=== PATIENT | female | born 1990 | race Caucasian/White ===

== ENCOUNTER 2018-01-27 15:36 | Emergency (ER) | payer BC ==
--- NOTE | 2018-01-27 18:30 | UC ---
Complaint Female HPI - HPI Summary HPI Summary: 27 y/o female presents to the urgent care c/o frequency and pressure on urination for the past 2 weeks. Pt concerned w/ since she has been burping, decrease appetite and nausea in the morning. She has similar symptoms whe she was w/ her other children. She took a test 4 days ago and it was negative. She request another. LMP:12/16/2017 and she was on Mirena and her [employer] change it to Low estrogen OCP. Pt denies fever, pelvic pain , lower back pain, vaginal d/c, Hx of STD's. Pt has not taken anything to alleviate symptoms. - History Of Current Complaint Chief Complaint: UCGU Stated Complaint: URINARY Time Seen by Provider: 01/27/18 18:27 Hx Obtained From: Patient Hx Last Menstrual Period: Dec 16-2017 Onset/Duration: Gradual Onset, Lasting Weeks - 2 weeks, Still Present, Worse Since - today Timing: Intermittent, Lasting Seconds Severity Initially: Mild Severity Currently: Mild Pain Intensity: 4 Pain Scale Used: 0-10 Numeric Character: Not Applicable Aggravating Factor(s): Urination Alleviating Factor(s): Nothing Associated Signs And Symptoms: Positive: Negative. Negative: Fever, Back Pain, Vaginal Bleeding/Discharge, Vaginal Discharge - Risk Factors Ectopic Risk Factor: Negative Ovarian Torsion Risk Factor: Negative - Allergies/Home Medications Allergies/Adverse Reactions: Allergies Allergy/AdvReac Type Severity Reaction Status Date / Time [email or web address] Allergy Anaphylatic Verified 01/27/18 18:17 Shock Sulfa (Sulfonamide Allergy Hives Verified 01/27/18 18:17 Antibiotics) Home Medications: Home Medications Norethindrone AC-Eth Estradiol [Loestrin 21 1-20 Tablet] 1 tab DAILY 01/27/18 [ History Confirmed 01/27/18] PMH/Surg Hx/FS Hx/Imm Hx Previously Healthy: Yes - Pt denies PMHX - Surgical History Surgical History: Yes Surgery Procedure, Year, and Place: Ear Tubes. Laparoscopy x2 for endometriosis - Family History Family History: Kidney cancer, lung cancer, breast cancer, prostate cancer - Social History Alcohol Use: None Substance Use Type: None Smoking Status (MU): Never Smoked Tobacco Review of Systems Constitutional: Negative Skin: Negative Eyes: Negative ENT: Negative Respiratory: Negative Cardiovascular: Negative Gastrointestinal: Negative Genitourinary: Frequency, Urgency Motor: Negative Neurovascular: Negative Musculoskeletal: Negative Neurological: Negative Psychological: Negative Is Patient Immunocompromised?: No All Other Systems Reviewed And Are Negative: Yes Physical Exam - Summary Physical Exam Summary: VITAL SIGNS: Reviewed. GENERAL: Patient is a well developed and nourished female who is sitting comfortable in the examining table. Patient is not in any acute respiratory distress. HEAD AND FACE: No signs of trauma. No ecchymosis, hematomas or skull depressions. No sinus tenderness. EYES: PERRLA, EOMI x 2, No injected conjunctiva, clear watery eyes, no nystagmus. No photophobia. EARS: Hearing grossly intact. Ear canals and tympanic membranes are within normal limits. MOUTH: pharynx with no erythema, no exudates,no palatal petechiae. no B/L tonsillar enlargement Uvula in midline. NECK: Supple, trachea is midline, no lymphadenopathy, no JVD, no carotid bruit, no c-spine tenderness, neck with full ROM. CHEST: Symmetric, no tenderness at palpation LUNGS: Clear to auscultation bilaterally. No wheezing or crackles. CVS: Regular rate and rhythm, S1 and S2 present, no murmurs or gallops appreciated. ABDOMEN: Soft, non-tender. No signs of distention. No rebound no guarding, and no masses palpated. Bowel sounds are normal. BACK:no scoliosis or lesions, non tender to palpation, No B/L CVA tenderness EXTREMITIES: FROM in all major joints, no edema, no cyanosis or clubbing. NEURO: Alert and oriented x 3. No acute neurological deficits. Speech is normal and follows commands. SKIN: Dry and warm Triage Information Reviewed: Yes Vital Signs: Initial Vital Signs Temp 98 F 01/27/18 18:18 Pulse 87 01/27/18 18:18 Resp 16 01/27/18 18:18 BP 111/45 01/27/18 18:18 Pulse Ox 100 01/27/18 18:18 Complaint Female Dx - Course Course Of Treatment: 27 y/o female presents to the urgent care c/o frequency and pressure on urination for the past 2 weeks. Pt concerned w/ since she has been burping, decrease appetite and nausea in the morning. She has similar symptoms whe she was w/ her other children. She took a test 4 days ago and it was negative. She request another. LMP:2017 and she was on Mirena and her [employer] change it to Low estrogen OCP. Pt denies fever, pelvic pain, lower back pain, vaginal d/c, Hx of STD's. Pt has not taken anything to alleviate symptoms.Hx obtained. PE: WNL. UA: negative, test: negative. Pt w/ Dysuria.Pt Rx Pyridium 100mg PO TID x 2 days. Advised to increase fluid intake.Explained that her symptoms may be due to change in her OCPs. Pt advised If symptoms do not improve f/u with PCP Luis. Pt understood and agreed. Left the clinic ambulating. - Differential Dx/Diagnosis Differential Diagnosis/HQI/PQRI: Pelvic Inflammatory Disease, , Renal Colic, Ureteral Stone, Urinary Tract Infection Provider Diagnoses: 1- Dysuria. 2-Screening for Discharge - Sign-Out/Discharge Documenting (check all that apply): Discharge - Discharge Plan Condition: Stable Disposition: HOME Prescriptions: Phenazopyridine TAB* [Pyridium 100 mg TAB*] 100 mg PO TID #6 tab Patient Education Materials: Dysuria (ED) Referrals: Gómez Davis DO [Primary Care Provider] - 3 Days Additional Instructions: 1- Please take Pyridium 100 mg PO TID x 2 days to alleviate urinary symptoms. Increase increase fluid intake. drink cranberry juice. 2-If symptoms do not improve please f/u with your PCP or [employer] for further evaluation and treatment - Billing Disposition and Condition Condition: STABLE Disposition: HOME
== END 2018-01-27 18:57 | disposition home or self-care (01) ==
LOC: UCCORT 15:36
DX: R30.0 Dysuria (principal); Z32.02 Encounter for pregnancy test, result negative; Z88.2 Allergy status to sulfonamides
CPT/HCPCS: 81003; 84702; 99202; G0463

== ENCOUNTER 2018-04-12 12:22 | Emergency (ER) | payer BC ==
--- NOTE | 2018-04-12 13:01 | UC ---
Complaint Female HPI - HPI Summary HPI Summary: urinary urgency and frequency x 5 days bilateral flank pain , no fever, no chills no nausea , no vomiting - History Of Current Complaint Chief Complaint: UCGU Stated Complaint: URINARY W/BACK PAIN Time Seen by Provider: 04/12/18 12:46 Hx Obtained From: Patient Hx Last Menstrual Period: unknown, on Oral BCP ?: No Onset/Duration: Gradual Onset, Lasting Days - 5, Still Present Timing: Constant Severity Initially: Severe Severity Currently: Severe Pain Intensity: 3 Character: Sharp Aggravating Factor(s): Urination Alleviating Factor(s): Nothing Associated Signs And Symptoms: Positive: Back Pain. Negative: Fever, Vaginal Bleeding/Discharge, Vaginal Discharge, Nausea, Vomiting(# Of Episodes =), Genital Swelling, Genital Blisters, Retained Foregin Body (Specify) - Allergies/Home Medications Allergies/Adverse Reactions: Allergies Allergy/AdvReac Type Severity Reaction Status Date / Time [email or web address] Allergy Anaphylatic Verified 04/12/18 12:37 Shock Sulfa (Sulfonamide Allergy Hives Verified 04/12/18 12:37 Antibiotics) PMH/Surg Hx/FS Hx/Imm Hx Previously Healthy: Yes - Surgical History Surgical History: Yes Surgery Procedure, Year, and Place: Ear Tubes. adnoids. Laparoscopy x2 for endometriosis - Family History Known Family History: Negative: Diabetes Family History: Kidney cancer, lung cancer, breast cancer, prostate cancer - Social History Alcohol Use: None Substance Use Type: None Smoking Status (MU): Never Smoked Tobacco Review of Systems Constitutional: Negative Skin: Negative Eyes: Negative ENT: Negative Respiratory: Negative Cardiovascular: Negative Gastrointestinal: Negative Is Patient Immunocompromised?: No All Other Systems Reviewed And Are Negative: Yes Physical Exam Triage Information Reviewed: Yes Appearance: Well-Appearing, Well-Nourished, Pain Distress Vital Signs: Initial Vital Signs Temp 98.9 F 04/12/18 12:34 Pulse 70 04/12/18 12:34 Resp 16 04/12/18 12:34 BP 119/63 04/12/18 12:34 Pulse Ox 100 04/12/18 12:34 Vital Signs Reviewed: Yes Eyes: Positive: Conjunctiva Clear ENT: Positive: Normal ENT inspection, Hearing grossly normal, Pharynx normal Neck: Positive: Supple, Nontender, No Lymphadenopathy Respiratory: Positive: Chest non-tender, Lungs clear, Normal breath sounds Cardiovascular: Positive: RRR, No Murmur, Pulses Normal Abdomen Description: Positive: Nontender, Soft. Negative: CVA Tenderness (R), CVA Tenderness (L), Distended, Guarding Bowel Sounds: Positive: Present Neurological Exam: Normal Skin Exam: Normal Complaint Female Dx - Differential Dx/Diagnosis Provider Diagnoses: flank pain Discharge - Sign-Out/Discharge Documenting (check all that apply): Discharge/Admit/Transfer - Discharge Plan Condition: Stable Disposition: HOME Patient Education Materials: Flank Pain (ED) Referrals: Gómez Davis DO [Primary Care Provider] - 5 Days Additional Instructions: normal UA , cont. with rest, increase fluid, take Tylenol as needed for pain ' follow up with your pcp in 5 days if not improving - Billing Disposition and Condition Condition: STABLE Disposition: Home
== END 2018-04-12 13:10 | disposition home or self-care (01) ==
LOC: UCCORT 12:22
DX: R10.9 Unspecified abdominal pain (principal); Z88.2 Allergy status to sulfonamides; Z91.018 Allergy to other foods
CPT/HCPCS: 81003; 99211; G0463

== ENCOUNTER 2019-07-08 09:56 | Emergency (ER) | payer BC, OTHER ==
[2019-07-08 10:58] VITALS: BP 110/61
--- NOTE | 2019-07-08 11:17 | UC ---
Throat Pain/Nasal Mynor HPI - HPI Summary HPI Summary: Pt presents with c/o nasal congestion, chills, body aches, possible fever, sinus pressure X "many days". Pt has baby at home is breast feeding and states she does not get "very good sleep at night". - History of Current Complaint Chief Complaint: UCGeneralIllness Stated Complaint: SINUS PRESSURE Time Seen by Provider: 07/08/19 10:56 Hx Obtained From: Patient Hx Last Menstrual Period: unknown, on Oral BCP ?: No Onset/Duration: Gradual Onset, Lasting Days, Still Present, Worse Since - onset Severity: Moderate Pain Intensity: 3 Associated Signs & Symptoms: Positive: Sinus Discomfort, Nasal Discharge, Fever - Epiglottits Risk Factors Epiglottis Risk Factors: Negative - Allergies/Home Medications Allergies/Adverse Reactions: Allergies Allergy/AdvReac Type Severity Reaction Status Date / Time [email or web address] Allergy Anaphylatic Verified 07/08/19 10:59 Shock Sulfa (Sulfonamide Allergy Hives Verified 07/08/19 10:59 Antibiotics) Home Medications: Home Medications Acetaminophen [Tylenol] 325 mg PO DAILY PRN 07/08/19 [History Confirmed 07/08/19 ] PMH/Surg Hx/FS Hx/Imm Hx Previously Healthy: Yes - Surgical History Surgical History: Yes Surgery Procedure, Year, and Place: Ear Tubes. adnoids. Laparoscopy x2 for endometriosis - Family History Known Family History: Negative: Diabetes Family History: Kidney cancer, lung cancer, breast cancer, prostate cancer - Social History Occupation: Works From/At Home Lives: With Family Alcohol Use: None Substance Use Type: None Smoking Status (MU): Never Smoked Tobacco Have You Smoked in the Last Year: No - Immunization History Vaccination Up to Date: Yes Review of Systems All Other Systems Reviewed And Are Negative: Yes Constitutional: Positive: Fever, Chills, Fatigue Skin: Positive: Negative Eyes: Positive: Negative ENT: Positive: Ear Ache, Sinus Congestion, Sinus Pain/Tenderness Respiratory: Positive: Negative Cardiovascular: Positive: Negative Gastrointestinal: Positive: Negative Genitourinary: Positive: Negative Motor: Positive: Negative Neurovascular: Positive: Negative Musculoskeletal: Positive: Myalgia Neurological: Positive: Negative Psychological: Positive: Negative Is Patient Immunocompromised?: No Physical Exam Triage Information Reviewed: Yes Appearance: Ill-Appearing Vital Signs: Initial Vital Signs Temp 98.4 F 07/08/19 10:53 Pulse 98 07/08/19 10:53 Resp 16 07/08/19 10:53 BP 110/61 07/08/19 10:53 Pulse Ox 100 07/08/19 10:53 Vital Signs Reviewed: Yes Eye Exam: Normal ENT: Positive: Nasal congestion, Sinus tenderness Dental Exam: Normal Neck exam: Normal Respiratory Exam: Normal Cardiovascular Exam: Normal Musculoskeletal Exam: Normal Neurological Exam: Normal Psychological Exam: Normal Skin Exam: Normal Throat Pain/Nasal Course/Dx - Differential Dx/Diagnosis Differential Diagnosis/HQI/PQRI: Influenza, Pharyngitis, Sinusitis, Tonsillitis , URI Provider Diagnosis: Sinusitis Discharge ED - Sign-Out/Discharge Documenting (check all that apply): Patient Departure All imaging exams completed and their final reports reviewed: No Studies - Discharge Plan Condition: Stable Disposition: HOME Prescriptions: Amoxicillin PO (*) [Amoxicillin 875 MG (*)] 875 mg PO Q12H #20 tab Cetirizine* [ZyrTEC 10 MG TAB*] 10 mg PO DAILY #7 tab Fluconazole 150 MG TAB* [Diflucan 150 MG TAB*] 150 mg PO UC ONCE #2 tablet Patient Education Materials: Sinusitis (ED) Referrals: Gómez Davis DO [Primary Care Provider] - If Needed Additional Instructions: Please follow up with your PCP as needed. - Billing Disposition and Condition Condition: STABLE Disposition: Home - Attestation Statements Provider Attestation: Per institutional requirements, I have reviewed the chart, however, I was not consulted specifically or made aware of this patient by the midlevel provider. I did not personally evaluate, interact with , or disposition this patient.
== END 2019-07-08 11:27 | disposition home or self-care (01) ==
LOC: UCCORT 09:56
DX: J32.9 Chronic sinusitis, unspecified (principal); Z88.1 Allergy status to other antibiotic agents
CPT/HCPCS: 99212; G0463

== ENCOUNTER 2019-09-23 14:51 | Emergency (ER) | payer OTHER ==
[2019-09-23 15:49] VITALS: BP 110/63
--- NOTE | 2019-09-23 16:07 | UC ---
Complaint Female HPI - HPI Summary HPI Summary: C/O recurrent BV with vaginal discharge and irritation. Just had it last month. - History Of Current Complaint Stated Complaint: URINARY COMPLAINT Hx Obtained From: Patient Hx Last Menstrual Period: 07/2019 ?: No Onset/Duration: Sudden Onset, Lasting Days - 2, Still Present Timing: Constant Severity Initially: Mild Severity Currently: Moderate Pain Intensity: 6 Character: Burning Aggravating Factor(s): Nothing Associated Signs And Symptoms: Positive: Vaginal Discharge Related Hx: Similar Episode/Dx as: - bacterial vaginosis - Allergies/Home Medications Allergies/Adverse Reactions: Allergies Allergy/AdvReac Type Severity Reaction Status Date / Time [email or web address] Allergy Anaphylatic Verified 09/23/19 15:50 Shock Sulfa (Sulfonamide Allergy Hives Verified 09/23/19 15:50 Antibiotics) Home Medications: Home Medications Norethindrone 0.35 mg PO DAILY 09/23/19 [History Confirmed 09/23/19] PMH/Surg Hx/FS Hx/Imm Hx Previously Healthy: Yes - Surgical History Surgical History: Yes Surgery Procedure, Year, and Place: Ear Tubes. adenoids/tonsils. Laparoscopy x2 for endometriosis - Family History Known Family History: Negative: Cardiac Disease, Hypertension, Diabetes Family History: Kidney cancer, lung cancer, breast cancer, prostate cancer - Social History Occupation: Works From/At Home Lives: With Family Alcohol Use: None Substance Use Type: None Smoking Status (MU): Never Smoked Tobacco Have You Smoked in the Last Year: No - Immunization History Vaccination Up to Date: Yes Review of Systems All Other Systems Reviewed And Are Negative: Yes ENT: Positive: Nasal Discharge Respiratory: Positive: Shortness Of Breath - wheezing, Cough Genitourinary: Positive: Vaginal/Penile Burning, Vaginal/Penile Discharge Physical Exam Triage Information Reviewed: Yes Appearance: No Pain Distress, Well-Nourished, Ill-Appearing Vital Signs: Initial Vital Signs Temp 98.5 F 09/23/19 15:40 Pulse 78 09/23/19 15:40 Resp 18 09/23/19 15:40 BP 110/63 09/23/19 15:40 Pulse Ox 100 09/23/19 15:40 Vital Signs Reviewed: Yes Eyes: Positive: Conjunctiva Clear ENT: Positive: Pharynx normal, Nasal congestion - with allergic changes, TMs normal Neck exam: Normal Respiratory: Positive: Lungs clear, Wheezing - end inspiratory wheezing Cardiovascular Exam: Normal Musculoskeletal Exam: Normal Neurological Exam: Normal Psychological Exam: Normal Skin Exam: Normal Complaint Female Dx - Differential Dx/Diagnosis Differential Diagnosis/HQI/PQRI: Appendicitis, Cervicitis, Urinary Tract Infection Provider Diagnosis: Bacterial vaginosis, Allergic rhinitis, Upper respiratory infection with cough and congestion Discharge ED - Sign-Out/Discharge Documenting (check all that apply): Patient Departure All imaging exams completed and their final reports reviewed: No Studies - Discharge Plan Condition: Stable Disposition: HOME Prescriptions: metroNIDAZOLE VAGINAL 0.75%* 1 applic VAGINAL BEDTIME 5 Days #1 tube Montelukast Sodium TAB* [Singulair 10 MG TAB*] 10 mg PO BEDTIME #30 tab Patient Education Materials: Bacterial Vaginosis (ED), Metronidazole (Into the vagina), Montelukast (By mouth) Referrals: Gómez Davis DO [Primary Care Provider] - - Billing Disposition and Condition Condition: STABLE Disposition: Home
== END 2019-09-23 16:17 | disposition home or self-care (01) ==
LOC: UCCORT 14:51
DX: N76.0 Acute vaginitis (principal); B96.89 Other specified bacterial agents as the cause of diseases classified elsewhere; J30.9 Allergic rhinitis, unspecified; J06.9 Acute upper respiratory infection, unspecified; R06.02 Shortness of breath; R05 Cough; R06.2 Wheezing; R09.81 Nasal congestion; Z88.2 Allergy status to sulfonamides; Z91.09 Other allergy status, other than to drugs and biological substances
CPT/HCPCS: 99212; G0463